=== PATIENT | female | born 2000 | race Two or more races ===

== ENCOUNTER 2025-04-10 16:50 | Emergency (ER) | payer OTHER ==
[~2025-04-10] VITALS: Ht 147.3 cm; Wt 55.3 kg
[2025-04-10] MEDS ORDERED: FAMOtidine 10 MG/ML (4ML VIAL) IV PUSH ONE (17:30)
[2025-04-10] MEDS ORDERED: 0.9 % SODIUM CHLORIDE 1,000 ML IV SCH (17:30)
[2025-04-10] MEDS ORDERED: ACETAMINOPHEN 500 MG GEL..CAP PO ONE ×2 (17:30→17:36)
[2025-04-10] MEDS ORDERED: FAMOTIDINE/PF 20 MG/2 ML VIAL ONE (17:37)
[2025-04-10 18:59] LABS: BASO % 0.5 % (0.1-1.2); EOS # 0.11 (0.04-0.54); EOS % 1.4 % (0.7-7.0); LYMPH # 2.48 (1.18-3.74); LYMPH % 32.4 % (19.3-53.1); MEAN PLATELET VOLUME 10.20 fl (9.4-12.4); MONO # 0.73 (0.24-0.82); MONO % 9.5 % (4.7-12.5); NEUT # 4.29 (1.56-6.13); NEUT % 56.1 % (34.0-71.1); RED CELL DISTRIBUTION WIDTH 13.3 % (11.6-14.4)
[2025-04-10 19:45] LABS: ALT/SGPT 20 U/L (12-78); AST/SGOT 15 U/L (15-37); BILIRUBIN TOTAL 0.39 mg/dL (0.3-1.2); BUN CREA RATIO 12 (7.0-25.0); CREATININE SERUM 0.90 mg/dL (0.55-1.02); GFR 77.59; GLOBULINA 3.9 G/DL (2.4-3.5); GLUCOSE FASTING 83 mg/dL (65-100); HCG QUANTITATIVE < 1 mUI/mL (1-3); OSMOLALITY SERUM 280 MOSM/KG (275-295)
[2025-04-10 19:55] LABS: URINE APPEARANCE Clear; URINE BILIRRUBIN Negative (NEGATIVE); URINE BLOOD Negative; URINE COLOR Yellow; URINE GLUCOSE Negative (NEGATIVE); URINE KETONE Negative (NEGATIVE); URINE LEUKOCYTE Negative; URINE NITRATE Negative; URINE PROTEIN Negative (NEGATIVE); URINE UROBILINOGEN 0.2 E.U./dl
[2025-04-10 19:59] LABS: URINE EPITHELIAL CELLS 96.4 uL (0.0-38.8); URINE RBC 6.8 uL (0.0-20.8); URINE WBC 7.3 uL (0.0-23.2)
[2025-04-10] MEDS ORDERED: IBU600 MG PO (20:04)
[2025-04-10] MEDS ORDERED: PEPCID AC20 MG PO (20:04)
[2025-04-10 20:53] LABS: URINE CAST 0.00 uL (0.0-1.40)
== END 2025-04-10 20:36 | disposition home or self-care (01) ==
LOC: ER 16:50
PROVIDERS: General Practice
DX: R10.A1 Flank pain, right side (principal); Z91.040 Latex allergy status; N83.299 Other ovarian cyst, unspecified side